=== PATIENT | female | born 2000 | race Caucasian/White ===

== ENCOUNTER 2019-02-13 23:47 | Emergency (ER) | payer MEDICAID, OTHER ==
[~2019-02-13] VITALS: Ht 162.6 cm; Wt 70.3 kg
--- NOTE | 2019-02-14 01:40 | NUR ---
Patient discharged to home in stable conditon. Written and verbal after care instructions given. Patient verbalizes understanding of instructions. Patient amublated with stable gait.
[2019-02-14 01:46] VITALS: BP 124/68
== END 2019-02-14 01:58 | disposition home or self-care (01) ==
LOC: ER 23:47
DX: S31.825A Open bite of left buttock, initial encounter (principal); W54.0XXA Bitten by dog, initial encounter; Y93.89 Activity, other specified; Y92.89 Other specified places as the place of occurrence of the external cause; Y99.8 Other external cause status
CPT/HCPCS: A4663